=== PATIENT | female | born 1965 | race American Indian/Alaskan Native ===

== ENCOUNTER 2016-09-14 09:07 | Outpatient (CLI) | payer BC ==
--- NOTE | 2016-09-14 10:11 | Mammography Report ---
Bilateral mammogram: Compared to at 05/20/13. CAD study utilized. Findings: Predominance adipose tissue bilaterally. Focal new asymmetry/architectural distortion upper right breast in the subareolar area right breast. No microcalcification. Benign axilla. Impression: Focal asymmetry upper right and subareolar right breast. Recommend spot magnification of study sonographic examination. BI-RADS CATEGORY: 0 = Needs additional imaging evaluation ACR BI-RADS MAMMOGRAPHIC CODES: 0 = Needs additional imaging evaluation; 1 = Negative; 2 = Benign; 3 = Probably benign; 4 = Suspicious; 5 = Malignant; 6 = Known biopsy-proven malignancy COMMENT: 1. Dense breast tissue, i.e., adenosis, fibrocystic changes, etc., may obscure an underlying neoplasm. 2. Approximately 10% of cancers are not detected with mammography. 3. A negative mammography report should not delay biopsy if a clinically suspicious mass is present. COMMENT: Patient follow-up letters are generated in [employer].
== END 2016-09-14 09:08 | disposition home or self-care (01) ==
LOC: MAMMO 09:07
PROVIDERS: ATTEND Nurse Practitioner Gerontology
DX: Z12.31 Encounter for screening mammogram for malignant neoplasm of breast (principal); N64.89 Other specified disorders of breast
CPT/HCPCS: 77067; G0202

== ENCOUNTER 2016-09-27 08:33 | Outpatient (CLI) | payer BC ==
--- NOTE | 2016-09-27 10:08 | Ultrasound Report ---
Diagnostic right mammogram and targeted right breast ultrasound. History: Recall for right asymmetries. Findings: A spot compression image demonstrates effacement of the previously noted asymmetric densities. A 9 degree mediolateral view is negative. Sonography of the upper half of the right breast demonstrates no cystic or solid masses. Impression: No suspicious findings. BI-RADS code: 1. Recommendation: Annual screening.
== END 2016-09-27 08:34 | disposition home or self-care (01) ==
LOC: MAMMO 08:33
PROVIDERS: ATTEND Nurse Practitioner Gerontology
DX: N64.89 Other specified disorders of breast (principal)
CPT/HCPCS: 76642; G0206

== ENCOUNTER 2017-09-29 08:43 | Outpatient (CLI) | payer BC ==
--- NOTE | 2017-09-29 09:29 | Mammography Report ---
BILATERAL MAMMOGRAM: FINDINGS: There are scattered fibroglandular densities (approximately 25%-50% glandular). No mass, distortion, suspicious calcification, or skin change is seen. No significant change when compared to prior examination in May 2015. CAD was utilized. IMPRESSION: Negative mammogram. There is no mammographic evidence of malignancy. RECOMMENDATION: Follow-up per ACS guidelines. BI-RADS CATEGORY: 1 = Negative ACR BI-RADS MAMMOGRAPHIC CODES: 0 = Needs additional imaging evaluation; 1 = Negative; 2 = Benign; 3 = Probably benign; 4 = Suspicious; 5 = Malignant; 6 = Known biopsy-proven malignancy COMMENT: 1. Dense breast tissue, i.e., adenosis, fibrocystic changes, etc., may obscure an underlying neoplasm. 2. Approximately 10% of cancers are not detected with mammography. 3. A negative mammography report should not delay biopsy if a clinically suspicious mass is present. COMMENT: Patient follow-up letters are generated in [employer].
== END 2017-09-29 08:44 | disposition home or self-care (01) ==
LOC: MAMMO 08:43
PROVIDERS: ATTEND Nurse Practitioner Gerontology
DX: Z12.31 Encounter for screening mammogram for malignant neoplasm of breast (principal)
CPT/HCPCS: 77067

== ENCOUNTER 2018-10-12 07:18 | Outpatient (CLI) | payer BC ==
--- NOTE | 2018-10-15 08:36 | Mammography Report ---
BILATERAL DIGITAL SCREENING MAMMOGRAM WITH CAD INDICATION: Routine screening mammography. TECHNIQUE: Digital bilateral 2D mammography was obtained in the craniocaudal and mediolateral obliq ue projections. This examination was interpreted with the benefit of Computer-Aided Detection analysi s. COMPARISON: 09/29/2017 FINDINGS: Breast Density: There are scattered areas of fibroglandular density. There is no evidence of mass, suspicious calcifications or architectural distortion in either breast . IMPRESSION:No mammographic evidence of malignancy. BI-RADS Category 1: Negative. No mammographic evidence of malignancy. Recommend routine screening m ammography in one year. A "normal" or negative report should not discourage follow up or biopsy of a clinically significant f inding. A written summary of these findings will be mailed to the patient. The patient will be entered into a mammography reporting system which will generate a reminder letter for the patient's next appointmen t at the appropriate interval. The [employer] recommends yearly mammograms starting at age 40 and continuing as l han as a woman is in good health. Breast MRI is recommended for women with an approximate 20-25% or greater lifetime risk of breast cancer, including women with a strong family history of breast or ova ann-marie cancer or who have been treated for Hodgkin's disease. Signer Name: Cortez Almanza MD Signed: 10/15/2018 8:31 AM Workstation Name: [id number]
== END 2018-10-12 07:19 | disposition home or self-care (01) ==
LOC: MAMMO 07:18
PROVIDERS: ATTEND Obstetrics & Gynecology
DX: Z12.31 Encounter for screening mammogram for malignant neoplasm of breast (principal)
CPT/HCPCS: 77067